=== PATIENT | female | born 1960 | race Caucasian/White ===

== ENCOUNTER → 2021-01-21 | Outpatient (CLI) | payer MEDICARE, OTHER ==
[~2021-01-21] MED LIST: ALPRAZOLAM0.5 MG PO; ASPIRIN EC81 MG PO; B 12 INJ; CALCIUM PO; CYANOCOBAL1000 MCG/1 INJ; ECOTRIN81 MG PO; EFFEXOR 37.537.5 MG PO; FISH OIL 1,0001 EAC1 PO; FISH OIL PO; FLAGYL500 MG PO; FLEXERIL 10 MG10 MG PO; GABAPENTIN400 MG PO; IMDUR ER TAB 3030 MG PO; ISOSORBIDE MONO30 MG PO; LEVAQUIN750 MG PO; LOPRESSOR 25 MG25 MG PO; METOPROLOL TART25 MG PO; NORCO 5-325 TA1 EACH PO; SUBOXONE 12 MG1 EACH SL; SUBOXONE 8 MG-1 EACH SL; TAGAMET HB200 MG PO; TRAMADOL HCL50 MG PO; TRICOR145 MG PO; VENLAFAXINE HC150 MG PO; VIT D PO; VITAMIN D-40400 UNIT PO; VITAMIN E400 UNI2 PO; XANAX1 MG PO; ZANTAC150 MG PO; ZOFRAN4 MG PO
== END ==
LOC: KOH-I 09:25
DX: F17.210 Nicotine dependence, cigarettes, uncomplicated (principal); K76.0 Fatty (change of) liver, not elsewhere classified
CPT/HCPCS: 71271

== ENCOUNTER → 2021-04-10 | Outpatient (CLI) | payer MEDICARE | LOC: KOH-I 12:38 | DX: N28.9 Disorder of kidney and ureter, unspecified (principal); N28.1 Cyst of kidney, acquired | CPT/HCPCS: 76775 ==

== ENCOUNTER → 2021-11-18 | Day surgery (SDC) | payer MEDICARE, OTHER ==
[~2021-11-18] MED LIST changes: +LINZESS290 MCG PO; +PEPCID40 MG PO; -XANAX1 MG PO; +XANAX2 MG PO
== END | disposition home or self-care (01) ==
LOC: OR 08:02
DX: K62.5 Hemorrhage of anus and rectum (principal); K29.61 Other gastritis with bleeding; K31.9 Disease of stomach and duodenum, unspecified; K21.00 Gastro-esophageal reflux disease with esophagitis, without bleeding; K22.10 Ulcer of esophagus without bleeding; K62.89 Other specified diseases of anus and rectum; K64.0 First degree hemorrhoids; K64.1 Second degree hemorrhoids; K64.4 Residual hemorrhoidal skin tags; K59.89 Other specified functional intestinal disorders; K66.0 Peritoneal adhesions (postprocedural) (postinfection); I10 Essential (primary) hypertension; K59.09 Other constipation; E66.8 Other obesity; Z68.28 Body mass index [BMI] 28.0-28.9, adult; Z72.0 Tobacco use; Z88.1 Allergy status to other antibiotic agents; Z79.82 Long term (current) use of aspirin
CPT/HCPCS: J2001; J2250; J2704; J3010; J7040